=== PATIENT | female | born 1955 | race Caucasian/White ===

== ENCOUNTER 2024-06-24 23:17 | Inpatient (IN) | payer OTHER, SELFPAY ==
[2024-06-24 18:32] VITALS: BP 148/97
[2024-06-24 18:56] VITALS: BMI 35.1
[2024-06-24] MEDS: TYLENOL 1000 MG PO (18:59)
[2024-06-24] MEDS: ZOFRAN 4 MG IV (19:05)
[2024-06-24] MEDS: NSS 1000 IV (19:05)
[2024-06-24 19:08] LABS: % Basophils 0.5 % (0-2); % Immature Granulocytes 0.4 % (0-0.5); % Lymphocytes 11.2 % (20.5-51.1); % Monocytes 6.7 % (1.7-9.3); % Neutrophils 80.2 % (42.2-75.2); Absolute Eosinophils 0.1 10^3/uL (0-0.7); Absolute Lymphocytes 0.9 10^3/uL (1.2-3.4); Absolute Monocytes 0.6 10^3/uL (0.1-0.6); Absolute Neutrophils 6.6 10^3/uL (1.4-6.5); Hematocrit 24.4 % (37.0-47.0); Hemoglobin 8.4 g/dL (12.0-16.0); Mean Corp Hgb Conc. 34.4 g/dL (33.0-37.0); Mean Corpuscular Hgb 28.1 pg (27.0-31.0); Mean Corpuscular Volume 81.6 fL (81.0-99.0); Mean Platelet Volume 8.9 fL (7.4-10.4); Nucleated Red Blood Cells % 0 %; Platelet Count 246 10^3/uL (130-400); Red Blood Cell Count 2.99 10^6/uL (4.20-5.40); Red Cell Dist. Width 12.9 % (11.5-14.5); White Blood Cell Count 8.2 10^3/uL (4.8-10.8)
[2024-06-24 19:21] LABS: COVID-19 Antigen Negative (Negative); Lactic Acid 2.4 mmol/L (0.7-2.0)
[2024-06-24 19:28] LABS: ALT (SGPT) 13 U/L (0-35); AST (SGOT) 21 U/L (14-36); Albumin 4.3 g/dl (3.5-5.0); Alkaline Phosphatase 70 U/L (38-126); Blood Urea Nitrogen 16 mg/dl (7-17); Calcium 9.8 mg/dl (8.4-10.2); Carbon Dioxide 22 mmol/L (22-30); Chloride 100 mmol/L (98-107); Estimated Creatinine Clearance 61 ml/min; Glucose 152 mg/dl (70-99); Lipase 121 U/L (23-300); Sodium 138 mmol/L (135-145); Total Bilirubin 1.5 mg/dl (0.2-1.3); Total Protein 6.9 g/dl (6.3-8.2); eGFR > 60.00
[2024-06-24 20:00] VITALS: BP 126/54
--- NOTE | 2024-06-24 20:10 | ED.GENMED ---
History of Present Illness
General
Chief Complaint: Abdominal Pain
Source: patient
Exam Limitations: none
Time Seen by Provider: 06/24/24 19:01
History of Present Illness
History of Present Illness:
This is a 68 year old female that comes in with c/o right sided abd pain. States that on Friday she has gone out for Lunch. States that she got in the car and she has this sharp right sided abd pain. States that if she had not been sitting down it
would have dropped her to the ground. States that she drove home and then she vomited. State that she has been in bed mostly since Friday. Friday she still had right sided pain but it was more a dull ache but still had nausea and vomiting.
Friday she went to and she was told that she had Cystitis but she had no urinary symptoms and they placed her on Cipro. States that she took 3 doses. States that she noticed that her Hgb was low on the blood work that they did. States that
she has pain when she sits up. States that today she has some low back pain and felt SOB when going up the steps. States that she also started with a cough. States that she had a fever yesterday of 99.5 with chills, SOB, abd pain, nausea, vomiting.
Denies any chest pain, diarrhea, headache, dizziness, urinary burning.
Past History
Past History
ED Past Medical History: NIDDM (Takes Ozempic)
ED Past Surgical History: Cholecystectomy and Other (Right breast lumpectomy)
Social History
Tobacco: Former smoker
Alcohol: Occasional
Personal:
Living: with family
Review of Systems
Review of Systems
All Other Systems: ROS reviewed and negative except as documented in HPI and ROS
Constitutional: Reports fever and chills
EENT: Reports no symptoms
Respiratory: Reports cough and trouble breathing
Cardiac: Denies chest pain
ABD/GI: Reports abdominal pain, nausea and vomiting; Denies diarrhea
: Reports no symptoms; Denies dysuria, frequency or urgency
Musculoskeletal: Reports back pain (Right sided low)
Skin: Reports no symptoms
Neurological: Reports no symptoms; Denies dizzy or headache
Psychiatric: Reports no symptoms
Phy Exam
General Physical Exam
General Presentation: no apparent distress
General age: appears stated age
General Skin: warm and dry
General Habitus: normal
General Mental: alert
General Hydration: dry mucous membranes
ENT Exam
ENT Exam: TM's normal, pharynx normal and neck supple
Eye Exam
Eye Exam: EOMI
Cardiovascular Exam
Cardiovascular Exam: no edema, no murmur, normal peripheral pulses and tachycardia
Pulmonary Exam
Pulmonary Exam: lungs clear, no respiratory distress, no rales, chest non tender, no crackles, no rhonchi, no wheezing and no cough
Gastrointestinal Exam
Gastrointestinal Exam: normal bowel sounds, soft, no organomegaly, no pulsatile mass, non distended and tender (Right sided abd tenderness with palpation mid lateral area)
Musculoskeletal Exam
Musculoskeletal Exam: full ROM and no edema
Skin Exam
Skin Exam: normal color, warm/dry, no rash and no petechia
Course
Orders/Labs/Results
Orders:
Orders
06/24/24 18:38
EKG [Electrocardiogram (*1)] Urgent
Reason for Study: Shortness of Breath
EKG- Treatment ONCE
06/24/24 18:42
Acetaminophen [Tylenol] 1,000 mg .ROUTE .STK-MED ONE
06/24/24 18:59
Acetaminophen [Tylenol] 1,000 mg PO NOW STA
06/24/24 19:01
CBC/With Diff [Complete Blood Count/With Diff] Urgent
CMP [Comprehensive Metabolic Panel] Urgent
COVID-19 Antigen Urgent
Source: Nasal Swab
Lactate Level [Lactic Acid] Urgent
Lipase Urgent
06/24/24 19:04
Ondansetron Injectable [Zofran] 4 mg .ROUTE .STK-MED ONE
06/24/24 19:05
0.9% Sodium Chloride 1000 ml [Nss] 1,000 ml IV BOLUS
Ondansetron Injectable [Zofran] 4 mg IV NOW STA
06/24/24 20:13
CR Chest - 2 Views Urgent
Comment:
Reason For Exam: SOB, cough
06/24/24 20:19
D-Dimer Urgent
06/24/24 20:58
CT Pe/abd/pel W Urgent
Reason For Exam: SOB, D-dimer
06/24/24 21:34
Urinalysis Reflex To Culture Urgent
Date Specimen was Collected: 06/24/24
Time Specimen was Collected: 21:32
Urine Microscopic Reflex Cult Urgent
06/24/24 22:20
Cefepime HCl [Maxipime] 1,000 mg IV NOW STA
Vancomycin 1 Gram/200 ml [Vancocin] 1 gram in 200 ml IV NOW
06/24/24 22:21
Consult Urology [UROLOGY CONSULT] Urgent
Consulting Provider: Luis M Hernandez
Was physician already notified: Yes
06/24/24 22:36
Add On- LAB Urgent
Tests Added?: Urine Culture
Sterile Water [Sterile Water For Injection] 10 ml .ROUTE .STK-MED ONE
06/24/24 22:43
Blood Bank Products [* Blood Bank Products] Urgent
Blood Bank Products: *Packed RBC Leuko(PRBC's)
Quantity: 1
Transfuse Today: Yes
Reason: Bleeding
06/24/24 22:45
Admit/Transfer Patient As Directed
Co-Sign Provider:
Level of Care: Inpatient admission
Assign to:: IMU- Intermediate Care
Physician / Group: Sabas
Diagnosis: Perinephric Hematoma, Acute Blood Loss Anemia
Reason for Hospitalization: Perinephric Hematoma, Acute Blood Loss Anemia
Expected length of stay greater than two midnights?: Yes
ELOS- Estimated Length of Stay in days: 3
I certify the patient meets the requirements for IP care: Yes
06/24/24 22:52
PRN Pain Medication Management As Directed
May give lesser potent ordered pain med per pt: Yes
preference::
Protocol:: Medication orders for pain may be administered in a
manner that supports deferring to patient preference
when the pt is:
- Requesting an ordered lesser potent pain medication.
Least to most potent pain medications are defined
as: acetaminophen < NSAID < tramadol < opioids
(morphine, oxycodone, hydromorphone).
- Requesting a lesser dose of the same medication IF
ORDERED.
- Requesting a less intrusive route of administration
if both routes are prescribed by the provider (PO <
IV).
06/24/24 22:54
Code Status As Directed
Resuscitation Status: Full Code
06/24/24 22:57
Type+Screen Urgent
Lactate Level [Lactic Acid] Urgent
Blood Culture Urgent
GALEN Source: Blood/Venous
Specimen Description:
06/24/24 23:18
ABO2 Urgent
BBK Wristband Number:
06/25/24 00:32
0.9% Sodium Chloride 1000 ml [Nss] 1,000 ml IV 150 mls/hr
Acetaminophen [Tylenol] 650 mg PO Q4HPRN PRN
Dextrose 50%-Water [Dextrose 50% Syringe] 12.5 grams IV [id number] PRN
Glucagon [GlucaGen] 1 mg IM PRN PRN
HYDROmorphone [Dilaudid] 0.5 mg IV Q4HPRN PRN
06/25/24 00:32
Activity As Directed
Activity Level: Bedrest
Bedside Glucose Monitoring As Directed
Frequency: AC&HS
Additional Instructions:: Change to q6h if pt on TPN, tube feeding or not eating
EKG with chest pain [ECG as needed] As Directed
ECG as needed for:: Chest Pain
I/O [Intake/ Output] As Directed
Frequency: Per unit guidelines
Orthostatic Vital Signs As Directed
Orthostatic VS Frequency: BID
Pneumatic Compression Sleeves As Directed
Type: Knee high
Vital Signs As Directed
Frequency: Per unit guidelines
Weight As Directed
Frequency: Daily
Oxygen Therapy [O2 Therapy] [RESP] Routine
Titrate/Wean O2 to maintain O2 sat greater than (%): 94
DX Deep Vein Thrombosis Video Routine
06/25/24 01:00
Ondansetron Injectable [Zofran] 4 mg IV Q6HPRN PRN
06/25/24 Breakfast
NPO
Allow oral meds: Yes
Allow clear liquids: Sips of Clears
NPO with Ice Chips: Yes
Basic Metabolic Panel IN AM
Complete Blood Count/No Diff IN AM
Glycohemoglobin (HgbA1c) IN AM
06/25/24 07:30
Insulin Aspart Corrective Low [Novolog Flexpen-Low Resistance] See Protocol SC AC
Abnormal Lab Results
06/24/24 06/24/24 06/24/24
19:01 20:19 21:34
RBC 2.99 L 10^6/uL
(4.20-5.40)
Hgb 8.4 L g/dL
(12.0-16.0)
Hct 24.4 L %
(37.0-47.0)
Absolute Neuts (auto) 6.6 H 10^3/uL
(1.4-6.5)
Absolute Lymphs (auto) 0.9 L 10^3/uL
(1.2-3.4)
Neutrophils % 80.2 H %
(42.2-75.2)
Lymphocytes % 11.2 L %
(20.5-51.1)
D-Dimer 2.14 H ug/mlFEU
(0.00-0.50)
Glucose 152 H mg/dl
(70-99)
Lactic Acid 2.4 H mmol/L
(0.7-2.0)
Total Bilirubin 1.5 H mg/dl
(0.2-1.3)
Urine Ketones 2+ A
(Negative)
Leukocyte Esterase Rfl Trace A
(Negative)
Crossmatch IS Only
06/24/24
22:57
RBC
Hgb
Hct
Absolute Neuts (auto)
Absolute Lymphs (auto)
Neutrophils %
Lymphocytes %
D-Dimer
Glucose
Lactic Acid
Total Bilirubin
Urine Ketones
Leukocyte Esterase Rfl
Crossmatch IS Only See Detail
06/24/24 19:01
06/24/24 19:01
H/H low, Hyperglycemia, Lactic acid 2.4, Total dixie slightly elevated.
Vital Signs
Initial and Last Documented VS:
Initial Vital Signs
Temp Pulse Resp BP Pulse Ox
100.6 F H 125 18 148/97 100
06/24/24 18:32 06/24/24 18:32 06/24/24 18:32 06/24/24 18:32 06/24/24 18:32
Last Documented Vital Signs
Temp Pulse Resp BP Pulse Ox
98.7 F 100 26 106/56 95
06/25/24 00:59 06/25/24 00:59 06/25/24 00:59 06/25/24 00:59 06/25/24 00:59
MDM/Problems Addressed
Differential Diagnosis Includes:
Renal calculus, Pyelonephritis, Appendicitis
MDM/Problems Addressed:
This is a 68 year old female that comes in with c/o right side abd pain. Stats that she had sharp pain on Friday and on Friday it continued as a dull ache. States that she has nausea/vomiting. Today she has been SOB with right sided abd pain.
States that she has had a fever with chills.
Will check labs. CT scan, IV fluids and medicate.
Back into see patient. Reviewed CT scan. Will admit patient. Hospitalist and Urologist notified. Will also start antibiotics.
Chronic conditions affecting care: DM
Acute Exacerbation and/or Progression of Chronic Illness:
NA
*Radiology
Radiology exam reviewed: radiology read reviewed (CT-Ruptured large right renal angiomyolipoma with associated perinephric hematoma. No definite hemorrhage extension into the peritoneum. NO pulmonary embolism. Right middle lobe Pulmonary nodule
measuring 0.9cm. Suggest outpatient workup with dedicated PET/CT. The [facility] pulmonary nodule) and other (CT cont- advisory board will be notified. )
*Pulse Oximetry
Patient hypoxic: no
*EKG
Interpreted by ED Provider?: Yes
Heart Rate: 117
Rate: tachycardiac
Rhythm: sinus tachycardia
[place]: left axis deviation
Interval: normal interval
QRS Pattern: normal QRS
Ischemia: non-specific ST changes (aVR, V4, V4, V6)
*[place] Interpretation
Rate: tachycardiac
Heart Rate: 121
Rhythm: sinus tachycardia
*Critical Care Note
Total Time (30-74mins, 75-104mins- exclusive of procedures): Not Applicable
ED Attending Note
-
Portions of this chart may have been created with voice recognition software.� Occasional wrong word or��sound alike� substitutions may have occurred due to the inherent limitations of voice recognition software.
Discharge Plan
Departure
Patient Disposition: Admit
Date of Disposition: 06/24/24
Time of Disposition: 22:21
Admit to: Med/Surg
Presentation/result/management discussed w/ accepting MD/DO: Hospitalist
Patient with high blood pressure during this ER visit?: Yes
Condition: Good
Covid-19: Not Applicable
Discharge Problem:
Angiomyolipoma of right kidney, Abdominal pain
Interventions
Interventions:
*Risk Screen - Suicide Last Done: 06/24/24 18:56
*General Assessment Last Done: 06/24/24 18:56
*Neglect/Abuse Screening Last Done: 06/24/24 18:56
ED- Fall Risk Assessment Last Done: 06/24/24 21:45
*ED COVID-19 Vaccine History Last Done: 06/24/24 18:56
*Nursing Disposition Last Done: 06/24/24 23:59
OI-Oxevfj-Ufqkpxqzya Assessment Last Done: 06/24/24 21:45
ED- Pulmonary Assessment Last Done: 06/24/24 21:45
Discharge Date and Time
Discharge Date/Time: 06/24/24 23:59
[2024-06-24 20:54] LABS: D-Dimer 2.14 ug/mlFEU (0.00-0.50)
[2024-06-24 21:40] VITALS: BP 130/68
[2024-06-24 21:45] LABS: Urine Albumin Trace (Neg - Trace); Urine Bilirubin Negative (Negative); Urine Character Clear (Clear); Urine Color Straw; Urine Glucose Negative (Negative); Urine Ketone 2+ (Negative); Urine Leukocyte Trace (Negative); Urine Nitrite Negative (Negative); Urine Occult Blood Negative (Negative); Urine Urobilinogen Negative (Neg - 1+)
[2024-06-24 22:00] VITALS: BP 105/53
[2024-06-24 22:23] LABS: Urine Red Blood Cell 0-2 /HPF (0-2)
--- NOTE | 2024-06-24 22:56 | HPS.HSE ---
Family Physician
-
Family Physician: * NONE
Chief Complaint
-
Flank Pain, N/V
History of Present Illness
Patient is a 68y F with PMH significant for DM-II who presents to ED complaining of right flank pain, N/V and SOB. Patient states that she was feeling well until Friday when she developed sudden onset of severe, sharp R flank pain. Patient
denies any prior h/o similar symptoms. Her pain persisted - though less severe - over the next few days. She had associated N/V Friday through Friday as well. Patient presented to an Urgent Care on Friday and was diagnosed with a UTI. She
was started on Cipro and has taken three doses thus far without clinical improvement.
Today patient began to feel short of breath and 'shaky' and presented to the ED for further evaluation.
Of note, patient had labs done during her Urgent Care visit which included Hgb = 8.5 g/dL. Patient denies any history of anemia and notes that her Hgb during routine PE in April of this year was 14 g/dL.
Medical History
Past Medical History
Past Medical History: Reports Other
Additional Past Medical History:
DM-II
Dyslipidemia
Obesity
Past Surgical History: Reports Other
Additional Past Surgical History:
Right Lumpectomy (benign)
Cholecystectomy
Social History
Tobacco: Former Smoker (Quit smoking 30 years ago. Approx 10 pack years total use.)
Alcohol: Occasional (Rare.)
Drug: None
Family History
Family History: Other (Father: CAD, Lung Cancer, Pancreatic Cancer Mother: Bladder Cancer, Valvular Heart Disease Sister: MS)
Allergies / Home Medications
Allergies reflects when Allergies were last updated in [facility].
Home Medications with original date entered in [facility]
Allergy/Medication List:
Allergies
Allergy/AdvReac Type Severity Reaction Status Date / Time
Penicillins Allergy Hives Verified 06/24/24 18:37
Home Medications
atorvastatin 10 mg tablet 5 mg PO DAILY 06/24/24
ciprofloxacin HCl 500 mg tablet 500 mg PO BID 06/24/24
glyburide 5 mg tablet 5 mg PO DAILY 06/24/24
metformin 1,000 mg tablet 1,000 mg PO BID 06/24/24
semaglutide 2 mg/dose (8 mg/3 mL) subcutaneous pen injector (Ozempic) 1.5 mg SC SA 06/24/24
Review of Systems
-
History Source: Patient
A 12 point ROS was completed and negative except as noted: Yes
Constitutional: Reports Fatigue; Denies Fever or Chills
EENT: Denies Sore Throat
Respiratory: Reports Trouble Breathing; Denies Cough
Cardiac: Denies Chest Pain or Palpitations
Abdomen/GI: Reports Abdominal Pain, Nausea and Vomiting; Denies Diarrhea, Constipated, Bloody Stools, Black Stools or Anorexia
: Reports Flank Pain; Denies Dysuria, Frequency, Bleeding or Discharge
Musculoskeletal: Denies Joint Pain or Edema
Neurological: Reports Dizzy; Denies Headache
Psych: Denies Depression or Anxiety
Physical Exam
Vital Signs
Vital Signs
Temp Pulse Resp BP Pulse Ox
99.8 F 103 15 105/53 96
06/24/24 21:40 06/24/24 22:00 06/24/24 22:00 06/24/24 22:00 06/24/24 22:00
Physical Exam
General: Other (68y F in no acute distress.)
HEENT: Moist mucous membranes and PERRLA
Respiratory: Clear; No Wheezes, Rales or Rhonchi
Cardiac: S1/S2 and Regular Rhythm; No Murmur
GI: Soft, Non Tender, Non Distended and Normal Bowel Sounds
Genito-urinary: Other (No flank ecchymosis. Pos R CVAT.)
Musculoskeletal: No Clubbing, No Cyanosis and No Edema
Neuro: AO x 3
Laboratory Results
-
06/24/24 19:
06/24/24:
Laboratory Results
Lactic Acid 2.4 mmol/L (0.7-2.0) H 06/24/24:
Total Bilirubin 1.5 mg/dl (0.2-1.3) H 06/24/24:
AST 21 U/L (14-36) 06/24/24:
ALT 13 U/L (0-35) 06/24/24:
Alkaline Phosphatase 70 U/L (38-126) 06/24/24:
Lipase 121 U/L (23-300) 06/24/24:
Impression/Plan
-
A/P: Patient is a 68y F with PMH significant for DM-II who presents to ED complaining of R flank pain, N/V and SOB.
Right Perinephric Hematoma
Acute Blood Loss Anemia secondary to the above
- Admit for further evaluation and treatment.
- CT scan done in the ED shows ruptured angiomyolipoma lower pole of the R kidney with large subcapsular hematoma.
- No extension into peritoneum appreciated. Severe perinephric edema / inflammation noted.
- Patient not on any blood thinner medications. Has been taking ibuprofen for the past few days for her pain.
- IVF support. Follow for any evidence of new hemodynamic instability.
- May require urgent IR evaluation / possible embolization if evidence of acute bleeding / hemodynamic instability overnight.
- Transfuse 1 unit PRBCs now and then follow H&H and provide additional blood products as needed.
- Hgb changed from 14 (April) to 8.5. Apparently stable over the past 24 hours (based on Urgent Care labs).
- Urology consulted and appreciate recommendations.
Fever
- Low grade fever (100.6) here in the ED.
- Potentially secondary to inflammatory process / perinephric inflammation due to the above.
- UA is unremarkable (after 3 doses of Cipro).
- No other focal symptoms to suggest infection.
- Observe off of further abx for now.
- Follow-up culture data / clinical course.
DM-II
- Stable. Hold PO medications acutely.
- Follow glucose and cover with SSI as needed.
- Update A1C.
Obesity due to excess calories
- Affects all aspects of care.
- Encourage healthy diet and increased exercise with goal of weight loss.
DVT Prophylaxis: SCDs
Code Status: Full
[2024-06-24 23:00] VITALS: BP 130/58
[2024-06-24] MEDS: MAXIPIME 1000 MG IV (23:01)
[2024-06-24] MEDS: VANCOCIN 200 IV (23:11)
[2024-06-24 23:20] LABS: Lactic Acid 0.9 mmol/L (0.7-2.0)
[2024-06-25] VITALS (25 sets, daily range): BP systolic 96–159; BP diastolic 47–94; PULSE 88–118; BMI 34.2; BMI 34.0
[2024-06-25] MEDS: NSS 1000 IV ×3 (03:37→20:49)
[2024-06-25 04:04] LABS: Hemoglobin 8.5 g/dL (12.0-16.0); Mean Corpuscular Hgb 29.2 pg (27.0-31.0); Mean Corpuscular Volume 85.9 fL (81.0-99.0); Platelet Count 205 10^3/uL (130-400); Red Blood Cell Count 2.91 10^6/uL (4.20-5.40); Red Cell Dist. Width 13.1 % (11.5-14.5); White Blood Cell Count 5.4 10^3/uL (4.8-10.8)
[2024-06-25 04:18] LABS: Blood Urea Nitrogen 13 mg/dl (7-17); Calcium 8.9 mg/dl (8.4-10.2); Carbon Dioxide 24 mmol/L (22-30); Chloride 105 mmol/L (98-107); Estimated Creatinine Clearance 67 ml/min; Glucose 125 mg/dl (70-99); Potassium 3.7 mmol/L (3.5-5.1); Sodium 140 mmol/L (135-145); eGFR > 60.00
[2024-06-25 07:29] LABS: Glucose - Point of Care 159 mg/dl (70-99)
[2024-06-25] MEDS: NOVOLOG FLEXPEN-LOW RESISTANCE 1 UNITS SC (07:50)
[2024-06-25] MEDS: TYLENOL 650 MG PO ×2 (07:52→19:58)
[2024-06-25 09:07] LABS: Hematocrit 26.4 % (37.0-47.0); Mean Corp Hgb Conc. 34.1 g/dL (33.0-37.0); Mean Corpuscular Hgb 29.3 pg (27.0-31.0); Mean Platelet Volume 8.9 fL (7.4-10.4); Platelet Count 217 10^3/uL (130-400); Red Blood Cell Count 3.07 10^6/uL (4.20-5.40); Red Cell Dist. Width 13.2 % (11.5-14.5); White Blood Cell Count 5.6 10^3/uL (4.8-10.8)
--- NOTE | 2024-06-25 09:21 | W.PN.UPDATE ---
Update Note
Progress Note Update
Bleeding right renal angiomyolipoma, 8.5 cm in diameter. AML tend to develop microaneurysms, which predispose to bleeding episodes. Bleeding risk higher for AML>3 cm in diameter.
No extravasation of contrast on current CT. Current bleeding episode will likely be self limiting, however given the high risk for future bleeding episodes, probably best to embolize the AML. Will plan for this afternoon.
--- NOTE | 2024-06-25 09:38 | W.PN.HOSP.TC ---
Addendum entered and electronically signed by Moises Harvey MD 06/25/24 09:53:
I saw and evaluated the patient. I reviewed the resident�s note and agree with findings and plan as documented in the resident�s note.
No new complaints. Right-sided abdominal pain has improved overall.
136/73, 96, 21, 98.1 �F, 98% on room air
Gen: NAD, AAOx3.
Eyes: EOMI, PERRLA, no scleral icterus.
Neck: supple.
CV: RRR, +S1/S2, no m/r/g.
Resp: CTAB, no rales, wheezes, or rhonchi.
Abd: +BS, soft, NT, ND
Skin: No rashes.
Neuro: CN 2-12 intact, non-focal.
Psych: Normal mood and affect.
CT C/A/P:
1. 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 No definite hemorrhage extension into the peritoneum.
2. No pulmonary embolism.
3. Right middle lobe pulmonary nodule measuring 0.9 cm. Suggest outpatient workup with dedicated PET/CT. The [facility] Pulmonary Nodule Advisory Board will be notified.
Acute blood loss anemia due to acute ruptured large right renal angiomyolipoma with associated perinephric hematoma:
-s/p 1U pRBCs, trend Hb
-IR to take for embolization as risk of rebleeding is high
-Initial fever on admission was likely due to bleeding and associated inflammation. Currently no evidence of infection. Continue to monitor off of antibiotics.
Total time spent on today's encounter was 50 minutes which included time spent in counseling the patient/family regarding diagnosis and treatment plan as listed above, goals of care, and symptom management. Case was discussed with nursing staff,
specialists, and care coordinators/case management. All labs and imaging personally reviewed by me. Remainder the time spent in detailed review of previous records, lab data, imaging, and other medical provider documentation.
Original Note:
Today's Communication/Plan
-
IR taking pt to embolize AML
Assessment / Plan
Assessment / Plan
Right Perinephric Hematoma
Acute Blood Loss Anemia secondary to the above
- Admit for further evaluation and treatment.
- CT scan done in the ED shows ruptured angiomyolipoma lower pole of the R kidney with large subcapsular hematoma.
- No extension into peritoneum appreciated. Severe perinephric edema / inflammation noted.
- Patient not on any blood thinner medications. Has been taking ibuprofen for the past few days for her pain.
- IVF support. Follow for any evidence of new hemodynamic instability.
- Hgb changed from 14 (April) to 8.5. 3am hg 8.5 s/p 1 unit PRBC. May still have active bleed.
-IR consulted. Will take pt for AML embolization this afternoon
-Keep NPO
Fever
- Low grade fever (100.6) here in the ED.
- Potentially secondary to inflammatory process / perinephric inflammation due to the above.
- UA is unremarkable (after 3 doses of Cipro).
- No other focal symptoms to suggest infection.
- Observe off of further abx for now.
- Follow-up culture data / clinical course.
DM-II
- Stable. Hold PO medications acutely.
- Follow glucose and cover with SSI as needed.
- Update A1C.
Obesity due to excess calories
- Affects all aspects of care.
- Encourage healthy diet and increased exercise with goal of weight loss.
DVT Prophylaxis: SCDs
Code Status: Full
Anticipated Discharge: > 48 hours
Subjective/Interval History
-
Date of Service: June 25, 2024
Objective Data
-
Labs:
Laboratory Results
06/25/24 06/25/24
03:42 08:50
WBC 5.4 5.6
Hgb 8.5 L 9.0 L
Hct 25.0 L 26.4 L
Plt Count 205 217
Sodium 140
Potassium 3.7
Chloride 105
Carbon Dioxide 24
BUN 13
Creatinine 0.9
Glucose 125 H
Calcium 8.9
Vital Signs:
Vital Signs
Temp Pulse Resp BP Pulse Ox
98.1 F 96 21 136/73 98
06/25/24 07:55 06/25/24 08:02 06/25/24 08:02 06/25/24 08:02 06/25/24 08:04
I&O
06/24/24 06/25/24 06/26/24
06:59 06:59 06:59
Intake Total 550 / 700 450 / 450
Balance 550 / 700 450 / 450
Review of Systems
-
History Source: Patient
Constitutional: Reports No Symptoms
Respiratory: Reports No Symptoms
Cardiac: Reports No Symptoms
Abdomen/GI: Reports No Symptoms
Genitourinary: Reports No Symptoms
Musculoskeletal: Reports No Symptoms
Neuro: Reports No Symptoms
Physical Exam
-
General: Well Developed, Well Nourished, No Apparent Distress and Comfortable
Respiratory: Clear to Auscultation
Cardiac: Regular Rhythm and S1/S2
GI: Soft, Nondistended and Tender (Slight tenderness RUQ)
Genito-urinary: No Costovertebral Tender
Musculoskeletal: No Edema
Skin: Warm and Dry
Neuro: AO x 3
Psych: Calm
[2024-06-25 10:09] LABS: Glycohemoglobin (HgbA1c) 6.6 % (4.0-5.6)
--- NOTE | 2024-06-25 10:30 | PTCARENOTE ---
Assumed care of patient at 0700. Patient alert and oriented. NSR on tele monitor. Lung sounds cta on RA. +BS. Last BM 06/24. Voiding without difficulty. VSS. IVFs infusing as ordered through peripheral INT. Repeat H&H 9.0/26.4 s/p 1 unit PRBCs. NPO
for embolization in afternoon.
--- NOTE | 2024-06-25 10:33 | W.PN.URO.CBU ---
Today's Communication / Plan
-
Serial hemoglobins
Transfuse as warranted
Alert IRAD as to possible need for renal embolization
No role for urgent surgical intervention at this time
Assessment / Plan
-
Spontaneous hemorrhage of 8-9 cm right renal angiomyolipoma
Acute blood loss anemia
Diagnosis
-
Date of Service: June 25, 2024
-
Patient Diagnosis:
Spontaneous hemorrhage of large right angiomyolipoma (likely occurred 06/21/24) with bleed contained to right renal capsule by CT scan imaging
Acute blood loss anemia
Diminishing right flank pain
Subjective
-
c/o of right flank pain: diminishing daily since acute onset 06/21/24
No dysuria or gross hematuria
Objective
-
Vital Signs
Temp Pulse Resp BP Pulse Ox
98.1 F 97 18 121/64 98
06/25/24 07:55 06/25/24 10:02 06/25/24 10:02 06/25/24 10:02 06/25/24 10:02
Intake and Output
06/24/24 06/25/24 06/26/24
06:59 06:59 06:59
Intake Total 550 / 700 600 / 600
Balance 550 / 700 600 / 600
Intake:
IV fluids (Total) 300 / 450 600 / 600
Nss 1,000 ml @ 150 mls/hr IV . 300 / 450 600 / 600
Q6H40M KI Rx#:[id number]
Blood Product Amount Infused ( 250 / 250
mL)
Packed Rbc Leukoreduced Unit 250 / 250
[id number]
Other:
Number of approximated MODERATE 1
amounts of urine
Laboratory Results
06/25/24 08:50
06/25/24 03:42
CT scan images personally reviewed
Review of Systems
-
Constitutional: No Symptoms
Respiratory: No Symptoms
Cardiac: No Symptoms
Abdomen/GI: Abdominal Pain
: No Symptoms
Neurological: No Symptoms
Physical Exam
-
General - well developed, well nourished, no acute distress
Abdomen - soft, no right flank ecchymosis, no CVAT
Skin - warm & dry with no rash
Neuro - AOx3, no motor deficits
Counseling
-
Follow serial hemoglobins
Patient will eventually (several months from now) need partial v. radical right nephrectomy
Will follow
[2024-06-25 11:00] LABS: INR 1.31; PT 16.1 Sec (11.4-14.6)
[2024-06-25 11:52] LABS: Glucose - Point of Care 146 mg/dl (70-99)
--- NOTE | 2024-06-25 12:16 | CM ---
CM met with patient in room. Patient confirmed demographics. Patient lives with . Patient denies a history of VN, SNF or DME. Patient confirmed that she is active with her PCP. Patient uses [facility] on [address] [facility] [address].
Plan: Home no needs.
--- NOTE | 2024-06-25 14:21 | PTCARENOTE ---
Patient transported to IR for embolization.
--- NOTE | 2024-06-25 17:24 | W.PN.UPDATE ---
Update Note
Progress Note Update
Right renal arteriogram performed. Selective arteriogram of multiple branches of the right renal artery. No tumor vessels seen to embolize. No enhancement in the area of the tumor.
Likely the tumor vessels are in spasm due to acute bleeding. Unable to embolize because arteries could not be seen.
May need repeat attempt at embolization after about a month, once spasm has relieved, to decrease risk of further bleeding episodes.
D/W patient.
Bedrest for 2 hours.
--- NOTE | 2024-06-25 18:00 | PTCARENOTE ---
Patient back from IR. VSS. Right groin site covered with bandaid; intact. Patient aware of orders to lay flat until 191.
[2024-06-25] MEDS: NSS IV (18:07)
[2024-06-25 18:09] LABS: Hemoglobin 8.8 g/dL (12.0-16.0)
[2024-06-25 18:11] LABS: Glucose - Point of Care 136 mg/dl (70-99)
[2024-06-25] MEDS: ZOFRAN 4 MG IV (19:36)
--- NOTE | 2024-06-25 19:40 | PTCARENOTE ---
Assumed care of pt at shift change; pt lying flat during rounds, per activity order post-procedure. Pt able to resume normal activity shortly after shift change, orthostatic vitals obtained and pt assisted to the bathroom with a steady gait, pt
denies dizziness. AAOx3, sinus tachycardia on the monitor, lung sounds clear with SpO2 98% on RA. Pt with a small bandage to R groin from embolism procedure this afternoon, small amount of drainage present to bandage, otherwise dry and intact.
Neurovascularly intact to RLE; +pulses, <2 sec cap refill, +sensation. Pt c/o mild nausea, relates nausea to NPO status, Zofran given, see MAR. Pt tender to palpitation to RLQ, c/o 6/10 pain, pt requesting Tylenol, given per request, see MAR. Pt and
family updated on POC for the evening, without questions at this time, resting comfortably in bed, call quick within reach.
[2024-06-25 23:59] LABS: Glucose - Point of Care 120 mg/dl (70-99)
[2024-06-26] VITALS (9 sets, daily range): BP systolic 118–149; BP diastolic 54–79
[2024-06-26] MEDS: NSS 1000 IV (03:42)
[2024-06-26] MEDS: DILAUDID 0.5 MG IV (05:09)
[2024-06-26 05:28] LABS: Hematocrit 23.5 % (37.0-47.0); Mean Corpuscular Hgb 28.3 pg (27.0-31.0); Mean Platelet Volume 8.7 fL (7.4-10.4); Platelet Count 231 10^3/uL (130-400); Red Blood Cell Count 2.83 10^6/uL (4.20-5.40); Red Cell Dist. Width 13.1 % (11.5-14.5)
[2024-06-26 05:54] LABS: Glucose - Point of Care 122 mg/dl (70-99)
[2024-06-26 06:08] LABS: ALT (SGPT) 11 U/L (0-35); AST (SGOT) 21 U/L (14-36); Albumin 3.3 g/dl (3.5-5.0); Alkaline Phosphatase 57 U/L (38-126); Blood Urea Nitrogen 8 mg/dl (7-17); Calcium 8.2 mg/dl (8.4-10.2); Carbon Dioxide 20 mmol/L (22-30); Chloride 106 mmol/L (98-107); Estimated Creatinine Clearance 86 ml/min; Glucose 117 mg/dl (70-99); Potassium 3.8 mmol/L (3.5-5.1); Sodium 140 mmol/L (135-145); Total Bilirubin 1.1 mg/dl (0.2-1.3); Total Protein 5.8 g/dl (6.3-8.2); eGFR > 60.00
--- NOTE | 2024-06-26 09:02 | W.PN.HOSP.TC ---
Addendum entered and electronically signed by Moises Harvey MD 06/26/24 10:01:
I saw and evaluated the patient. I reviewed the resident�s note and agree with findings and plan as documented in the resident�s note.
No new complaints. Right-sided abdominal pain has improved overall.
136/73, 96, 21, 98.1 �F, 98% on room air
Gen: NAD, AAOx3.
Eyes: EOMI, PERRLA, no scleral icterus.
Neck: supple.
CV: Remains RRR, +S1/S2, no m/r/g.
Resp: Remains CTAB, no rales, wheezes, or rhonchi.
Abd: +BS, soft, NT to light palpation, ND
Skin: No rashes.
Neuro: CN 2-12 intact, non-focal.
Psych: Normal mood and affect.
CT C/A/P:
1. 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 No definite hemorrhage extension into the peritoneum.
2. No pulmonary embolism.
3. Right middle lobe pulmonary nodule measuring 0.9 cm. Suggest outpatient workup with dedicated PET/CT. The [facility] Pulmonary Nodule Advisory Board will be notified.
Acute blood loss anemia due to acute ruptured large right renal angiomyolipoma with associated perinephric hematoma:
-s/p 1U pRBCs, Hb stable when accounting for dilution
-IR attempted embolization of AML but unsuccessful due to vasospasm
-Initial fever on admission was likely due to bleeding and associated inflammation. Currently no evidence of infection. Continue to monitor off of antibiotics.
-case discussed with Drs. Irizarry and Patricia and they have no objections to discharge
-Check hemoglobin in 3 to 4 days outpatient
Total time spent on d/c = 40 min. This included today's physical exam, progress note, review of laboratory and diagnostic data, preparation of discharge documents and prescriptions, and discussions about the pt's hospital course and discharge plan
with the patient and other medical administrative specialist involved in the patient's care.
Original Note:
Today's Communication/Plan
-
Discharge pending repeat H&H after stopping fluids. Regular diet
Assessment / Plan
Assessment / Plan
Right Perinephric Hematoma
Acute Blood Loss Anemia secondary to the above
- Admit for further evaluation and treatment.
- CT scan done in the ED shows ruptured angiomyolipoma lower pole of the R kidney with large subcapsular hematoma.
- No extension into peritoneum appreciated. Severe perinephric edema / inflammation noted.
- Patient not on any blood thinner medications. Has been taking ibuprofen for the past few days for her pain.
- IVF support. Follow for any evidence of new hemodynamic instability.
- Hgb changed from 14 (April) to 8.5. 3am hg 8.5 s/p 1 unit PRBC. May still have active bleed.
-IR AML embolization unsuccessful as unable to visualize vessels to tumor. Suggest repeat attempt in one month
-Stop fluids, repeat CBC to see if hg stabilizes
-Discharge pending repeat H&H
-Restart regular diet
Fever
- Low grade fever (100.6) here in the ED.
- Potentially secondary to inflammatory process / perinephric inflammation due to the above.
- UA is unremarkable (after 3 doses of Cipro).
- No other focal symptoms to suggest infection.
- Observe off of further abx for now.
- No repeat fevers
- Follow-up culture data / clinical course.
DM-II
- Stable.
- Follow glucose and cover with SSI as needed.
- A1C 6.6
-Restart PO medications after discharge
Obesity due to excess calories
- Affects all aspects of care.
- Encourage healthy diet and increased exercise with goal of weight loss.
DVT Prophylaxis: SCDs
Code Status: Full
Anticipated Discharge: Today
Subjective/Interval History
-
Date of Service: June 26, 2024
Objective Data
-
Labs:
Laboratory Results
06/26/24
05:05
WBC 6.0
Hgb 8.0 L
Hct 23.5 L
Plt Count 231
Sodium 140
Potassium 3.8
Chloride 106
Carbon Dioxide 20 L
BUN 8
Creatinine 0.7
Glucose 117 H
Calcium 8.2 L
Total Bilirubin 1.1
AST 21
ALT 11
Alkaline Phosphatase 57
Vital Signs:
Vital Signs
Temp Pulse Resp BP Pulse Ox
98.7 F 97 20 118/54 99
06/26/24 07:13 06/26/24 08:15 06/26/24 08:15 06/26/24 08:15 06/26/24 08:15
I&O
06/25/24 06/26/24 06/27/24
06:59 06:59 06:59
Intake Total 550 / 700 3300 / 3450 300 / 300
Balance 550 / 700 3300 / 3450 300 / 300
Review of Systems
-
History Source: Patient
EENT: Reports No Symptoms Reported
Respiratory: Reports Cough (Cough that comes and goes)
Cardiac: Reports No Symptoms
Abdomen/GI: Reports Abdominal Pain (RUQ and RLQ )
Genitourinary: Reports No Symptoms
Neuro: Reports No Symptoms
Physical Exam
-
General: Well Developed and No Apparent Distress
Respiratory: Clear to Auscultation
Cardiac: Regular Rhythm and S1/S2
GI: Soft, Nondistended and Tender (RUQ and RLQ)
Skin: Warm and Dry
Neuro: AO x 3
Psych: Calm
--- NOTE | 2024-06-26 09:06 | PTCARENOTE ---
Assumed care of patient at 0700. VSS. AAOX3. NSR/ST (with exertion) on tele monitor. Pulse ox 95-97% on RA. Lung sounds cta. +BS. No BM. Voiding in bathroom. Patient ambulatory in room without difficulty. OOB in chair. Discussed plan of care with
resident MD. Diet advanced to regular diet. Patient assisted in ordering breakfast. IVFs capped. Full assessment and care as charted on worklist.
[2024-06-26 09:50] LABS: Glucose - Point of Care 127 mg/dl (70-99)
--- NOTE | 2024-06-26 10:49 | CM ---
Cm reviewed medical records. Plan for discharge today. Home no needs.
PLAN: Home
--- NOTE | 2024-06-26 10:50 | PTCARENOTE ---
Discharge orders placed. Patient updated.
--- NOTE | 2024-06-26 11:44 | W.DCSUMMARY ---
Addendum entered and electronically signed by Moises Harvey MD 06/26/24 12:44:
Read, reviewed, and agree. See same day progress note for additional details.
Original Note:
Discharge Summary
Discharge Data
Date of Admission: 06/24/24
Date of Discharge: 06/26/24
-
Pending Results: No
Hospital Course
Primary diagnosis:
Right perinephric hematoma
Acute blood loss anemia secondary to right perinephric hematoma
Secondary diagnosis:
Diabetes mellitus type 2
Obesity
Hospital course:
And is a 68-year-old female who presented to the ED on 06/24 with sharp right sided abdominal pain associated with nausea and vomiting. Her abdominal pain started on Friday. On Friday she went to an urgent care and was told she had cystitis and
they placed her on ciprofloxacin despite not having any UTI symptoms. On the she presented to the ED with continued abdominal pain and shortness of breath. She had CVA tenderness on physical exam. In the ED her temperature was 100.6,
pulse 125, respiratory rate 18, BP 140/97, pulse ox 100%. Hemoglobin was 8.4 despite being higher than 14 in April. WBC 8.2, Lactic acid 2.4, total bilirubin 1.5. UA 2+ ketones, trace leukocyte esterase, 3-5 WBC otherwise normal. Abdominal/pelvis
CT revealed ruptured large right renal angiomyolipoma with associated perinephric hematoma. No definite hemorrhage and extension into the peritoneum and a right middle lobe pulmonary nodule measuring 0.9 cm. Chest x-ray revealed mild left basilar
atelectasis but otherwise unremarkable. COVID-negative. Patient started on IV fluids, given 1 unit of packed red blood cells, started on antibiotics, urology consulted, and admitted to the IMU. Upon further workup by hospitalist, patient taken
off antibiotics as UA was normal, WBC normal, and fever likely due to inflammation from bleed. The next morning patient was afebrile, lactic acid 0.9, WBC 5.4, hemoglobin level was 8.5. Active bleed suspected with no increase in hemoglobin after 1
unit of packed red blood cells and IR was consulted. IR evaluated patient and found bleeding right renal angiolipoma, 8.5 cm in diameter. They stated current bleeding episode will likely be self-limited however given risk for future bleeding
episodes as AML is greater than 3 cm in diameter, they scheduled patient to embolize the AML that afternoon. Patient was taken for procedure, but IR unable to visualize vessels that supplied the tumor on renal arteriogram. Suspect tumor vessels
are likely in spasm due to acute bleeding and recommended repeat attempt at embolization in a month 1 when spasm is likely relieved.
Today, patient is clinically stable for discharge per IR, urology and the hospitalist team. Patient being sent home with instructions to follow-up for repeat procedure and repeat CBC in 3 to 4 days with PCP. Patient is also being sent home with
tramadol for pain management.
Ab/Pelvic CT Findings 06/24/24:
1. 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 No definite hemorrhage extension into the peritoneum.
2. No pulmonary embolism.
3. Right middle lobe pulmonary nodule measuring 0.9 cm. Suggest outpatient workup with dedicated PET/CT. The [facility] Pulmonary Nodule Advisory Board will be notified.
Discharge Plan
-
Patient Disposition: Home (Routine Discharge)
Discharge Diagnosis/Procedures: Right perinephric hematoma, acute blood loss anemia secondary to right perinephric hematoma
Condition: Good
Diet: Diabetic, Carb Controlled
Activity: As tolerated
Driving Restrictions: As prior to admission
Bathing Restrictions: None
Blood Work: CBC in 3-4 days, script from PCP
Referrals:
NONE,* [Family Provider] - in less than 1 week
Luis M Hernandez MD [Active] - in one to two weeks
Donny Gomez MD [Active] -
Prescriptions:
New
tramadol 50 mg tablet
50 mg PO Q6H PRN (Reason: severe pain) Qty: 7 0RF
Continued
atorvastatin 10 mg Tablet
5 mg PO DAILY
glyburide 5 mg Tablet
5 mg PO DAILY
metformin 1,000 mg Tablet
1,000 mg PO BID
Ozempic 2 mg/dose (8 mg/3 mL) Pen Injector
1.5 mg SC SA
Discontinued
ciprofloxacin HCl 500 mg tablet
500 mg PO BID
Discharge Orders:
Discharge Patient (As Directed); Ordered 06/26/24
Ordered By: Moises Harvey
Discharge Date and Time
Print Language: THAI
--- NOTE | 2024-06-26 11:52 | PTCARENOTE ---
IV access and tele monitor removed. Patient escorted out to car in wheelchair with belongings.
== END 2024-06-26 11:45 | disposition home or self-care (01) | DRG 686 ==
LOC: ICU 23:17
PROVIDERS: Clinical Nurse Specialist Family Health; Emergency Medicine; Radiology Vascular & Interventional Radiology; ADMITTING PHYSICIAN Hospitalist; ATTENDING PHYSICIAN Internal Medicine; CONSULT PHYSICIAN Specialist; EMERGENCY PHYSICIAN Student in an Organized Health Care Education/Training Program
PROC: B4161ZZ Fluoroscopy of Right Renal Artery using Low Osmolar Contrast (ICD-10-PCS; 2024-06-25)
PROC: 30233N1 Transfusion of Nonautologous Red Blood Cells into Peripheral Vein, Percutaneous Approach (ICD-10-PCS; 2024-06-25)
DX: D17.71 Benign lipomatous neoplasm of kidney (principal); K68.3 Retroperitoneal hematoma; D62 Acute posthemorrhagic anemia; E66.09 Other obesity due to excess calories; E11.9 Type 2 diabetes mellitus without complications; R91.1 Solitary pulmonary nodule; Z79.84 Long term (current) use of oral hypoglycemic drugs; Z87.891 Personal history of nicotine dependence; Z68.34 Body mass index [BMI] 34.0-34.9, adult
CPT/HCPCS: 36251; 71046; 71275; 74177; 75726; 76937; 80048; 80053; 81003; 81015; 82962; 83036; 83605; 83690; 85018; 85025; 85027; 85379; 85610; 86850; 86900; 86901; 86920; 87040; 87086; 87811; 93005; 96361; 96365; 96375; 99152; 99153; 99285; C1769; C1887; P9016; Q9967